=== PATIENT | female | born 1975 | race Two or more races ===

== ENCOUNTER 2017-10-21 04:21 | Emergency (ER) | payer MEDICAID ==
[~2017-10-21] VITALS: Ht 167.6 cm; Wt 84.4 kg
[2017-10-21 06:21] VITALS: BP 120/73
== END 2017-10-21 06:21 | disposition home or self-care (01) ==
LOC: ED 04:21
DX: G43.909 Migraine, unspecified, not intractable, without status migrainosus (principal)
CPT/HCPCS: J1200; J2765; J3490; J7030